=== PATIENT | female | born 1955 ===

== ENCOUNTER 2017-03-27 07:17 | Outpatient (CLI) | payer OTHER ==
[~2017-03-27 07:17] MED LIST: AVAPRO300 MG PO; LANTUS100 U/ML; LANTUS100 U/ML SQ; METFORMIN HCL500 MG PO; NOVOLIN N100 UNITS/ ID; NOVOLIN R100 U/ML; SYNTHROID125 MCG; SYNTHROID150 MCG PO; SYNTHROID88 MCG PO; TOPROL XL50 M1; ZITHROMAX500 MG PO; ZOCOR5 MG
== END 2017-03-27 07:27 | disposition home or self-care (01) ==
LOC: NUCLEAR 07:17
DX: I25.10 Atherosclerotic heart disease of native coronary artery without angina pectoris (principal); I20.0 Unstable angina
CPT/HCPCS: 78452; 93017; A9500